=== PATIENT | female | born 1990 | race Caucasian/White ===

== ENCOUNTER 2018-09-10 20:46 | Outpatient (CLI) | payer OTHER ==
[~2018-09-10] VITALS: Ht 160 cm; Wt 60.0 kg
[2018-09-10 21:08] VITALS: BP 139/69
[2018-09-10 21:17] VITALS: BP 139/69
[2018-09-10] MEDS ORDERED: LACTATED RINGERS 1,000 ML IVBOLUS ONE (21:30)
[2018-09-10] MEDS ORDERED: ACETAMINOPHEN 325 MG TABLET ONE (21:55)
[2018-09-10] MEDS ORDERED: ACETAMINOPHEN 325 MG TABLET PO ONE (22:00)
[2018-09-10] MEDS ORDERED: ZOLPIDEM 5MG TABLET ONE (22:45)
[2018-09-10] MEDS ORDERED: ZOLPIDEM 5MG TABLET PO ONE (23:00)
[2018-09-13] MEDS ORDERED: PREN-3 PO (05:39)
== END 2018-09-10 23:00 | disposition home or self-care (01) ==
LOC: LDOP 20:46
PROVIDERS: ATTEND Obstetrics & Gynecology
DX: O62.9 Abnormality of forces of labor, unspecified (principal); Z3A.36 36 weeks gestation of pregnancy
CPT/HCPCS: 59025; 96360; 99211; G0463

== ENCOUNTER 2020-12-24 08:44 | Emergency (ER) | payer OTHER ==
[~2020-12-24] VITALS: Ht 160 cm; Wt 77.0 kg
[~2020-12-24 08:44] MED LIST: DOCU-131 PO; IBUP-1222 PO; OXYC1TAB14 PO; PREN-3 PO
--- NOTE | 2020-12-24 08:50 | NUR ---
Ronny richard in [facility] - 12/24/20 at 0954 by MAYCO CLAMSHELL ENGINEER: RA SAT 87%, 2L NC PLACED, SP02 = 93%
--- NOTE | 2020-12-24 08:58 | NUR ---
INSPECTOR AGRICULTURAL COMMODITIES: PT 18WKS GESTATION WITH C/O NEAR SYNCOPAL EPISODE. NO RELATED COMPLAINTS. [facility] CALLED AND WILL COME TO ED FOR FHT MONITOR
--- NOTE | 2020-12-24 09:10 | NUR ---
PT BIB HER BOSS VIA POV. PER PT SHE HAD A "FAINTING SPELL" AT WORK THIS MORNING. PT STATES SHE HAS NO SYMPTOMS NOW, BUT WANTED TO GET CHECKED OUT. PT RESTING IN [facility], MONITORING IN PLACE, STORMY AT THIS TIME, JANETTE.
[2020-12-24] MEDS ORDERED: SODIUM CHLORIDE 0.9% 1,000ML IVBOLUS ONE (09:30)
[2020-12-24] MEDS ORDERED: SODIUM CHLORIDE FLUSH 10ML SYR IVF ONE (09:30)
[2020-12-24 09:58] LABS: BASOPHILS % (AUTO) 0 % (0-1); EOSINOPHILS % (AUTO) 1 % (1-7); LYMPHOCYTES % (AUTO) 11 % (22-44); MEAN CORPUSCULAR HEMOGLOBIN 28.4 pg (27.0-34.8); MEAN CORPUSCULAR HGB CONC 33.2 g/dL (32.4-35.8); MEAN PLATELET VOLUME 9.3 fL (7.4-10.4); MONOCYTES % (AUTO) 5 % (2-9); NEUTROPHILS % (AUTO) 83 % (42-75); PLATELET COUNT 229 x10^3/uL (130-400); RED BLOOD COUNT 4.45 x10^6/uL (3.82-5.3); RED CELL DISTRIBUTION WIDTH 14.5 % (9.6-15.2)
[2020-12-24 10:04] LABS: ALANINE AMINOTRANSFERASE 14 U/L (12-78); ALBUMIN 2.5 g/dL (3.4-5.0); ANION GAP 9 mmol/L (5-15); CALCIUM 8.8 mg/dL (8.5-10.1); CHLORIDE 109 mmol/L (98-107); CREATININE 0.47 mg/dL (0.55-1.02)
[2020-12-24 10:21] LABS: ALKALINE PHOSPHATASE 70 U/L (45-117); BILIRUBIN,TOTAL 0.4 mg/dL (0.2-1.0); TOTAL PROTEIN 6.4 g/dL (6.4-8.2)
[2020-12-24 10:24] VITALS: BP 107/77
[2020-12-24 11:43] LABS: MICROSCOPIC NOT IND
== END 2020-12-24 12:16 | disposition home or self-care (01) ==
LOC: ED 08:47
DX: O26.892 Other specified pregnancy related conditions, second trimester (principal); R55 Syncope and collapse; Z3A.20 20 weeks gestation of pregnancy
CPT/HCPCS: 36415; 71045; 80053; 81003; 84702; 85025; 93005; 96360; 99285; J7030

== ENCOUNTER 2021-02-18 08:23 | Outpatient (CLI) | payer OTHER ==
[~2021-02-18] VITALS: Ht 160 cm; Wt 80.9 kg
[2021-02-18 08:45] VITALS: BP 106/57
== END 2021-02-18 10:24 | disposition home or self-care (01) ==
LOC: LDOP 08:23
PROVIDERS: ATTEND Obstetrics & Gynecology
DX: O16.3 Unspecified maternal hypertension, third trimester (principal); Z3A.28 28 weeks gestation of pregnancy
CPT/HCPCS: 59025; 82962